=== PATIENT | male | born 1995 | race Two or more races ===

== ENCOUNTER 2021-12-26 19:34 | Emergency (ER) | payer OTHER ==
[~2021-12-26] VITALS: Ht 172.7 cm; Wt 70.3 kg
--- NOTE | 2021-12-26 20:00 | NUR ---
TO ER BED 9. BIBRA C/O HEAD INJURY S/P COLLIDING HEADS WHILE PLAYING SOCCER. PT STATES HE HAS PAIN IN HEAD RADIATING TO NECK. +KO. DENIES ANY CHEST PAIN. NOT IN RESPIRATORY DISTRESS. CONNECTED TO MONITOR.
--- NOTE | 2021-12-26 20:24 | NUR ---
PT TAKEN FOR CT SCAN
--- NOTE | 2021-12-26 20:37 | NUR ---
PT BACK FROM CT, RECONNECTED TO MONITOR
[2021-12-26 21:15] VITALS: BP 112/70
--- NOTE | 2021-12-26 21:15 | NUR ---
Patient discharged to home in stable condition. Written and verbal after care instructions given. Patient verbalizes understanding of instruction.
== END 2021-12-26 21:16 | disposition home or self-care (01) ==
LOC: ER 19:36
DX: S06.0X1A Concussion with loss of consciousness of 30 minutes or less, initial encounter (principal); Z60.2 Problems related to living alone; W50.0XXA Accidental hit or strike by another person, initial encounter; Y93.66 Activity, soccer; Y92.89 Other specified places as the place of occurrence of the external cause; Y99.8 Other external cause status
CPT/HCPCS: 70450-TC; 72125-TC